=== PATIENT | male | born 1985 | race Caucasian/White ===

== ENCOUNTER 2021-12-09 09:16 | Emergency (ER) | payer BC ==
[2021-12-09] MEDS ORDERED: Morphine 4 MG/ML VIAL ONE (11:12)
[2021-12-09] MEDS ORDERED: Ketorolac Tromethamine 30 MG/ML VIAL ONE (11:13)
[2021-12-09] MEDS ORDERED: Ondansetron PF 4 MG/2 ML Vial ONE (11:13)
== END 2021-12-09 13:35 | disposition home or self-care (01) ==
LOC: CSHERS 09:16
DX: M54.41 Lumbago with sciatica, right side (principal); X50.0XXA Overexertion from strenuous movement or load, initial encounter
CPT/HCPCS: 96374; 96375; J1885; J2270; J2405

== ENCOUNTER 2022-01-17 12:03 | Emergency (ER) | payer BC ==
[2022-01-17] MEDS ORDERED: HYDROcodone/Acetaminophen 7.5/325 mg Tablet ONE (12:42)
[2022-01-17] MEDS ORDERED: Ibuprofen 200 MG TAB ONE (12:43)
== END 2022-01-17 13:22 | disposition home or self-care (01) ==
LOC: CSHERS 12:03
DX: M79.675 Pain in left toe(s) (principal); X50.9XXA Other and unspecified overexertion or strenuous movements or postures, initial encounter; Y93.39 Activity, other involving climbing, rappelling and jumping off

== ENCOUNTER 2022-11-24 11:21 | Emergency (ER) | payer BC ==
[2022-11-24] MEDS ORDERED: Ketorolac Tromethamine 30 MG/ML VIAL ONE (12:50)
== END 2022-11-24 12:55 | disposition home or self-care (01) ==
LOC: CSHERS 11:21
DX: S60.221A Contusion of right hand, initial encounter (principal); I10 Essential (primary) hypertension; W26.9XXA Contact with unspecified sharp object(s), initial encounter
CPT/HCPCS: 96372; J1885

== ENCOUNTER 2024-05-06 11:16 | Emergency (ER) | payer BC ==
[2024-05-06] MEDS ORDERED: Morphine 4 MG/ML VIAL ONE (12:14)
[2024-05-06] MEDS ORDERED: Ondansetron PF 4 MG/2 ML Vial ONE (12:15)
[2024-05-06 12:22] LABS: #Basophils 0.07 10x3/uL (0.0-0.2); #Eosinphils 0.39 10x3/uL (0.0-0.5); #Monocytes 0.44 10x3/uL (0.0-1.1); %Basophils 1.4 % (0.0-2.0); %Eosinophils 7.9 % (0.0-6.0); %Lymphocytes 23.2 % (18.0-47.0); %Monocytes 8.9 % (0.0-10.0); %Neutrophils 58.4 % (40.0-75.0); Hematocrit 39.6 % (38.8-50.0); Hemoglobin 13.8 g/dL (13.5-17.5); Mean Corpuscular HGB CONC 34.8 g/dL (32.0-36.0); Mean Corpuscular Hemoglobin 30.6 pg (27.0-33.0); Mean Corpuscular Volume 87.8 fL (81.2-95.1); Mean Platelet Volume 8.8 fL (7.4-10.4); Platelet Count 323 10x3/uL (150-450); RBC Distribution Width 12.7 % (11.5-14.5); Red Blood Cell (RBC) Count 4.51 10x6/uL (4.32-5.72)
[2024-05-06 12:58] LABS: ALT (SGPT) 47 U/L (8-55); AST (SGOT) 41 U/L (5-34); Alkaline Phosphatase 89 U/L (40-110); Anion Gap 14 mmol/L (10-20); BUN (Urea Nitrogen) 11 mg/dL (8.9-20.6); Bilirubin, Total 1.2 mg/dL (0.2-1.2); Calc. Creatinine Clearance 0 mL/min (70-130); Calcium 9.3 mg/dL (7.8-10.44); Carbon Dioxide 26 mmol/L (22-29); Chloride 102 mmol/L (98-107); Estimated GFR 97; Glucose 102 mg/dL (70-105); Potassium 4.1 mmol/L (3.5-5.1); Sodium 138 mmol/L (136-145)
[2024-05-06] MEDS ORDERED: Ketorolac Tromethamine 30 MG (1 mL) VIAL ONE (14:20)
[2024-05-06] MEDS ORDERED: Iopamidol 300 61% 100 ML VIAL FS ONE (15:30)
== END 2024-05-06 14:40 | disposition home or self-care (01) ==
LOC: CSHERS 11:16
DX: S46.011A Strain of muscle(s) and tendon(s) of the rotator cuff of right shoulder, initial encounter (principal); M54.50 Low back pain, unspecified; R07.81 Pleurodynia; I10 Essential (primary) hypertension; W11.XXXA Fall on and from ladder, initial encounter
CPT/HCPCS: 71260; 74177; 80053; 85025; 96361; 96374; 96375; J1885; J2272; J2405; Q9967